=== PATIENT | female | born 1930 | race Caucasian/White ===

== ENCOUNTER → 2021-09-10 | Outpatient (CLI) | payer MEDICARE, OTHER ==
--- NOTE | 2021-09-10 16:30 | RAD ---
PQRS Compliance Statement: One or more of the following individualized dose reduction techniques were utilized for this examinat ion: 1. Automated exposure control 2. Adjustment of the mA and/or kV according to patient size 3. Use of iterative reconstruction technique CT LUMBAR SPINE WO Clinical Indication: Reason: LOWER BACK PAIN / Spl. Instructions: / History: Comparison: None. TECHNIQUE: Helical CT imaging of the lumbar spine is performed without IV contrast. CT abdomen Findings: No acute fracture is seen. Left L5 is partially sacralized. No acute fracture is seen. The alignment is maintained. There is disc space narrowing and vacuum disc phenomenon of L2/L3. There is moderate d isc space narrowing and endplate irregularity of L4/L5. There is vacuum disc phenomenon of L5/S1. No significant disc space narrowing at L5/S1. The visualized sacroiliac joints are symmetric. L1/L2: There is broad-based posterior disc osteophyte complex. The central canal is adequate. The steve ral foramina are patent. L2/L3: There is broad-based posterior disc osteophyte complex. Mild facet hypertrophy. There is mild central canal stenosis. The neural foramina are patent. L3/L4: There is broad-based posterior disc osteophyte complex and mild ligamentum flavum redundancy. There is mild central canal stenosis. There is mild bilateral neural foraminal narrowing. L4/L5: There is broad-based posterior disc osteophyte complex. The central canal is adequate. There i s mild facet hypertrophy. The left neural foramen is patent. There is mild narrowing of the right steve ral foramen. L5/S1: No significant spondylitic disc. The central canal is patent. Neural foramina are adequate. Severe aortoiliac atherosclerotic calcification. There are bilateral pleural effusions, incompletely imaged. There are cardiac pacer wires. There is pericardial effusion. There is coronary artery diseas e. There is probably cardiac enlargement. There is colon diverticulosis. IMPRESSION: 1. There is no high-grade central canal stenosis or neural foraminal narrowing. 2. Mild degenerative spondylosis. 3. Bilateral pleural effusions, incompletely imaged. 4. Pericardial effusion. Electronically signed by: Domo Sanford MD (09/10/2021 4:28 PM) [id number]
== END ==
LOC: CT 14:47
PROVIDERS: ATTEND Internal Medicine
DX: M47.816 Spondylosis without myelopathy or radiculopathy, lumbar region (principal); J90 Pleural effusion, not elsewhere classified; I31.3 Pericardial effusion (noninflammatory); M48.061 Spinal stenosis, lumbar region without neurogenic claudication; M25.78 Osteophyte, vertebrae
CPT/HCPCS: 72131